=== PATIENT | male | born 2000 | race African-American/Black ===

== ENCOUNTER 2018-03-15 14:34 | Emergency (ER) | payer OTHER ==
[~2018-03-15] VITALS: Ht 185.4 cm; Wt 63.5 kg
--- NOTE | 2018-03-15 15:22 | Emergency Room Report ---
History of Present Illness General Chief Complaint: Pain Source: Patient Present Illness HPI Patient persist with complaints of right thumb pain also sore throat Patient reports jamming the thumb against a wall 3 days ago has had pain involving the dorsal part the thumb into the upper part of the left hand Patient also complained of a sore throat Reports that the sore throat started about 1 hour ago Denies any chest pain or shortness of breath Denies any back or flank pain denies any dysuria or frequency And eyes any posterior neck pain Denies any fevers Allergies: Coded Allergies: No Known Allergies (Unverified , 03/15/18) Patient History Past Medical History: see triage record Pertinent Family History: none Reviewed Nursing Documentation: PMH: Agreed; PSxH: Agreed Nursing Documentation-PMH Past Medical History: No Stated History Review of Systems All Other Systems: negative except mentioned in HPI Physical Exam Vital Signs Date Time Temp Pulse Resp B/P (MAP) Pulse Ox O2 Delivery O2 Flow Rate FiO2 03/15/18 14:58 98.1 130 22 137/76 97 Room Air 98.1 Sp02 EP Interpretation: reviewed, normal General Appearance: well appearing, no apparent distress Head: normocephalic, atraumatic Eyes: bilateral eye PERRL, bilateral eye EOMI ENT: hearing grossly normal, normal pharynx, TMs + canals normal, uvula midline Neck: full range of motion, supple, no meningismus, no bony tend Respiratory: lungs clear, normal breath sounds, no rhonchi, no respiratory distress, no retraction, no accessory muscle use Cardiovascular #1: normal peripheral pulses, regular rate, rhythm, no edema, no gallop, no JVD, no murmur Gastrointestinal: normal bowel sounds, non tender, soft, no mass, no organomegaly, non-distended, no guarding, no hernia, no pulsatile mass, no rebound Genitourinary: no CVA tenderness Musculoskeletal: swelling - Right thumb, small amount of subungual hematoma noted as well pain at the DIP on palpation no obvious open cuts Neurologic: oriented x3, responsive, tarper III-XII nml as tested, motor strength/ tone normal, sensory intact Psychiatric: mood/affect normal Skin: other - As above Lymphatic: normal inspection, no adenopathy Procedures Splinting Splinting : Consent: Verbal Location: Right thumb Pre-Made Type: metal Splint: Finger splint Pre-Proc Neuro Vasc Exam: normal Post-Proc Neuro Vasc Exam: normal Patient Tolerated: Well Complications: None Medical Decision Making Diagnostic Impression: Primary Impression: Contusion Additional Impression: Subungual hematoma ER Course Given the patient's history and presentation X-ray imaging was warranted patient had imaging obtained Patient provided with a splint And is stable for close outpatient follow-up I did not feel any intervention was required given that the contusion occurred 3 days past Other X-Ray Diagnostic Results Other X-Ray Diagnostic Results : X-Ray ordered: Right hand # of Views/Limited Vs Complete: 4 View Indication: Pain EP Interpretation: Yes Interpretation: no dislocation, no soft tissue swelling, no fractures Impression: No acute disease Electronically Signed by: Angeles Nesbitt DO Last Vital Signs Date Time Temp Pulse Resp B/P (MAP) Pulse Ox O2 Delivery O2 Flow Rate FiO2 03/15/18 14:58 98.1 130 22 137/76 97 Room Air 98.1 Status: improved Disposition: HOME, SELF-CARE Condition: Improved Scripts Ibuprofen* (MOTRIN*) 600 Mg Tablet 600 MG ORAL Q8H PRN for For Pain, #20 TAB 0 Refills Prov: Angeles Nesbitt DO 03/15/18 Additional Instructions: Patient is provided with the discharge instructions notified to follow up with primary doctor in the next 2-3 days otherwise return to the er with any worsening symptoms. Please note that this report is being documented using [employer] technology. This can lead to erroneous entry secondary to incorrect interpretation by the dictating instrument. Angeles Nesbitt DO Mar 15, 2018 15:22
[2018-03-15] MEDS ORDERED: IBUPROFEN600 MG ORAL (15:40)
[2018-03-15 16:02] VITALS: BP 132/75
[2018-03-15 16:06] VITALS: BP 132/75
--- NOTE | 2018-03-15 16:15 | Diagnostic Imaging Report ---
Indication: Trauma, pain Technique: 3 views right hand Comparison: none Findings: No acute fractures. No dislocations. The joint spaces are preserved Impression: Negative
== END 2018-03-15 16:07 | disposition home or self-care (01) ==
LOC: EMR 15:25
DX: S60.011A Contusion of right thumb without damage to nail, initial encounter (principal); W22.01XA Walked into wall, initial encounter; Y92.9 Unspecified place or not applicable
CPT/HCPCS: 99283

== ENCOUNTER 2018-03-18 01:49 | Emergency (ER) | payer OTHER ==
[~2018-03-18] VITALS: Ht 182.9 cm; Wt 64.0 kg
[~2018-03-18 01:49] MED LIST: IBUPROFEN600 MG ORAL
[2018-03-18 02:00] VITALS: BP 132/81
[2018-03-18] MEDS ORDERED: ACETAMINOPHEN-1 EAC1 ORAL (02:01)
[2018-03-18] MEDS ORDERED: Tylenol #3 tab (300mg/30mg) ORAL ONE (02:15)
[2018-03-18 02:20] VITALS: BP 132/81
--- NOTE | 2018-03-18 03:05 | Emergency Room Report ---
History of Present Illness General Chief Complaint: Pain Source: Patient Present Illness HPI Patient presents with request of tape for his finger splint Patient was here 2 days ago with complaints of finger contusion He reports that he had taken the splint off to take a shower And did not have any tape to replace the splint Patient also complains of ongoing throat discomfort On initial presentation patient had complained mainly of his finger discomfort Patient does smoke marijuana and has had discomfort with swallowing Denies any fevers or chills denies any posterior neck pain Denies any chest pain or shortness of breath Allergies: Coded Allergies: No Known Allergies (Unverified , 03/15/18) Patient History Past Medical History: see triage record Pertinent Family History: none Reviewed Nursing Documentation: PMH: Agreed; PSxH: Agreed Nursing Documentation-PMH Past Medical History: No Stated History Review of Systems All Other Systems: negative except mentioned in HPI Physical Exam Vital Signs Date Time Temp Pulse Resp B/P (MAP) Pulse Ox O2 Delivery O2 Flow Rate FiO2 03/18/18 01:54 98.0 110 18 145/85 98 Room Air 98.1 Sp02 EP Interpretation: reviewed, normal General Appearance: well appearing, no apparent distress Head: normocephalic, atraumatic Eyes: bilateral eye PERRL, bilateral eye EOMI ENT: pharyngeal erythema - However no obvious pustule, uvula midline no fullness Neck: full range of motion, supple Respiratory: chest non-tender, lungs clear Cardiovascular #1: regular rate, rhythm Gastrointestinal: non tender, soft Musculoskeletal: normal inspection, other - Subungual hematoma on the thumb Neurologic: alert, oriented x3, responsive Skin: normal color, no rash Medical Decision Making Diagnostic Impression: Primary Impression: contusion Additional Impression: Viral pharyngitis ER Course Patient had tape replaced for his splint Patient's throat exam reveals mild erythema appears to be likely viral in nature provided with pain medication and requires close outpatient follow-up Last Vital Signs Date Time Temp Pulse Resp B/P (MAP) Pulse Ox O2 Delivery O2 Flow Rate FiO2 03/18/18 02:20 98.0 03/18/18 02:20 72 18 132/81 99 Room Air Status: improved Disposition: HOME, SELF-CARE Condition: Stable Scripts Acetaminophen With Codeine (T#3) (TYLENOL #3 TAB*) Y Tab 1 TAB ORAL Q8H PRN for For Pain, #10 TAB Prov: Jamehdor,Ali DO 03/18/18 Referrals: Lisa SHIN,REFERRING (PCP) Patient Instructions: Contusion, [id number] Additional Instructions: Patient is provided with the discharge instructions notified to follow up with primary doctor in the next 2-3 days otherwise return to the er with any worsening symptoms. Please note that this report is being documented using [employer] technology. This can lead to erroneous entry secondary to incorrect interpretation by the dictating instrument. Angeles Nesbitt DO Mar 18, 2018 03:05
== END 2018-03-18 02:20 | disposition home or self-care (01) ==
LOC: EMR 02:09
DX: S60.01 Contusion of thumb without damage to nail (principal); F12.10 Cannabis abuse, uncomplicated; J02.9 Acute pharyngitis, unspecified
CPT/HCPCS: 99283

== ENCOUNTER 2018-07-16 23:11 | Emergency (ER) | payer OTHER ==
[~2018-07-16] VITALS: Ht 188 cm; Wt 68.5 kg
[~2018-07-16 23:11] MED LIST changes: +ACETAMINOPHEN-1 EAC1 ORAL
[2018-07-16 23:15] VITALS: BP 166/77
[2018-07-16] MEDS ORDERED: ACYCLOVIR800 MG ORAL (23:46)
[2018-07-17] VITALS: BP 165/71
--- NOTE | 2018-07-17 00:19 | Emergency Room Report ---
History of Present Illness General Chief Complaint: Male Urogenital Problems Source: Patient Present Illness HPI 18-year-old male presents ED for evaluation. States that he has a rash on his penis for the last 2 weeks. States it is very itchy and noted to be very bumpy. States he had unprotected sex about one month ago. Denies any discharge. Denies any pain. Denies any fevers or chills. No other aggravating relieving factors. Denies any other associated symptoms Allergies: Coded Allergies: No Known Allergies (Unverified , 07/16/18) Patient History Past Medical History: none Past Surgical History: none Pertinent Family History: none Social History: Denies: smoking, alcohol use, drug use Immunizations: UTD Reviewed Nursing Documentation: PMH: Agreed; PSxH: Agreed Nursing Documentation-PMH Past Medical History: No Stated History Review of Systems All Other Systems: negative except mentioned in HPI Physical Exam Vital Signs Date Time Temp Pulse Resp B/P (MAP) Pulse Ox O2 Delivery O2 Flow Rate FiO2 07/16/18 23:14 98.6 80 16 166/77 99 Room Air 98.6 Sp02 EP Interpretation: reviewed, normal General Appearance: no apparent distress, alert, GCS 15, non-toxic Head: normocephalic Eyes: bilateral eye normal inspection, bilateral eye PERRL ENT: normal ENT inspection Neck: normal inspection Respiratory: normal inspection Cardiovascular #1: normal inspection Gastrointestinal: normal bowel sounds, non tender, soft, non-distended, no guarding, no rebound Rectal: deferred Genitourinary: no CVA tenderness Musculoskeletal: normal inspection Neurologic: alert, oriented x3, responsive, motor strength/tone normal, sensory intact, speech normal Psychiatric: normal inspection Skin: rash - 1x1cm area of vesciular rash to penis. no surrounding erythema/ induration Lymphatic: normal inspection Medical Decision Making Diagnostic Impression: Primary Impression: Abnormal urogenital findings ER Course Hospital Course 18-year-old male presents to ED with rash to penis Differential diagnoses include: Cellulitis, dermatitis, insect bite, abscess Clinical course Patient placed on stretcher. After initial history, physical exam reveals a male in no acute distress. On exam there is a confluence of vesicles on the penis. Nonerythematous. No induration. No discharge. patient denies any urethral discharge. Discussed findings with patient. concern for HPV versus genital warts versus herpes. We'll prescribe acyclovir. Recommend patient follow up with [facility] clinic for testing Diagnosis - abnormal urogenital findings stable and discharged to home with prescription for Acyclovir. Instructed to followup with [facility] clinic. Instructed return to ED if symptoms recur or worsen Last Vital Signs Date Time Temp Pulse Resp B/P (MAP) Pulse Ox O2 Delivery O2 Flow Rate FiO2 07/17/18 00:00 98.5 82 16 165/71 99 Room Air Status: improved Disposition: HOME, SELF-CARE Condition: Stable Scripts Acyclovir* (ZOVIRAX*) 800 Mg Tablet 800 MG ORAL FIVE TIMES A DAY for 7 Days, TAB Prov: German Tillman MD 07/16/18 Patient Instructions: Sexually Transmitted Disease, [id number] German Tillman MD Jul 17, 2018 00:19
== END 2018-07-17 | disposition home or self-care (01) ==
LOC: EMR 23:38
DX: R21 Rash and other nonspecific skin eruption (principal)
CPT/HCPCS: 99282